=== PATIENT | female | born 1965 | race Caucasian/White ===

== ENCOUNTER 2018-01-28 09:20 | Emergency (ER) | payer MEDICAID ==
[~2018-01-28] VITALS: Ht 154.9 cm; Wt 108.7 kg
[~2018-01-28 09:20] MED LIST: APIX5TAB PO; ASPI-496 PO; GABA-826 PO; LEVO500T47 PO; METO50TA82 PO; TRAM50TA2 PO
[2018-01-28] MEDS ORDERED: ALBUTEROL/IPRATROPIUM 2.5MG/0.5MG, 3 ML ONE (10:26)
[2018-01-28] MEDS ORDERED: ALBUTEROL/IPRATROPIUM 2.5MG/0.5MG, 3 ML NPPB ONE (10:30)
[2018-01-28 10:49] LABS: BASOPHILS # (AUTO) 0.09 x10^3/uL (0-0.1); BASOPHILS % (AUTO) 1 % (0-1); EOSINOPHILS # (AUTO) 0.67 x10^3/uL (0-0.4); EOSINOPHILS % (AUTO) 5 % (1-7); LYMPHOCYTES # (AUTO) 2.28 x10^3/uL (1-3.4); LYMPHOCYTES % (AUTO) 18 % (22-44); MD NO; MEAN CORPUSCULAR HEMOGLOBIN 29.3 pg (27.0-34.8); MEAN CORPUSCULAR HGB CONC 33.8 g/dL (32.4-35.8); MEAN CORPUSCULAR VOLUME 86.7 fL (80-100); MEAN PLATELET VOLUME 7.9 fL (7.4-10.4); MONOCYTES # (AUTO) 0.62 x10^3/uL (0.2-0.8); MONOCYTES % (AUTO) 5 % (2-9); NEUTROPHILS % (AUTO) 71 % (42-75); PLATELET COUNT 314 x10^3/uL (130-400); RED BLOOD COUNT 4.59 x10^6/uL (3.82-5.3)
[2018-01-28 10:50] LABS: ALANINE AMINOTRANSFERASE 24 U/L (12-78); ALBUMIN 2.9 g/dL (3.4-5.0); ANION GAP 7 mmol/L (5-15); CALCIUM 8.3 mg/dL (8.5-10.1); CHLORIDE 107 mmol/L (98-107); CREATININE 0.82 mg/dL (0.55-1.02)
[2018-01-28 10:52] LABS: ALKALINE PHOSPHATASE 82 U/L (45-117); BILIRUBIN,TOTAL 0.6 mg/dL (0.2-1.0); TOTAL PROTEIN 7.6 g/dL (6.4-8.2)
[2018-01-28 11:41] VITALS: BP 140/72
[2018-01-28] MEDS ORDERED: SODIUM CHLORIDE FLUSH 10ML SYR IVF ONE (12:00)
[2018-01-28] MEDS ORDERED: OMNIPAQUE 350 MG/ML, 100ML BOTTLE ONE (12:40)
== END 2018-01-28 13:35 | disposition home or self-care (01) ==
LOC: ED 09:56
DX: J98.01 Acute bronchospasm (principal); E11.65 Type 2 diabetes mellitus with hyperglycemia
CPT/HCPCS: 36415; 71046; 71275; 80053; 85025; 85379; 93005; 94640; 99285; J7512; Q9967; J7620

== ENCOUNTER 2019-03-02 22:57 | Inpatient (IN) | payer MEDICAID, OTHER ==
[~2019-03-02] VITALS: Ht 154.9 cm; Wt 144.2 kg
--- NOTE | 2019-03-02 23:15 | NUR ---
SBAR report received from RN, Alexsander. Pt resting on gurney, on all monitors, NSR noted. Pt on 2 LPM O2 via NC.
--- NOTE | 2019-03-02 23:18 | NUR ---
Dr. Serna at bedside to evaluate pt. Lab at bedside.
[2019-03-02 23:29] LABS: BASOPHILS # (AUTO) 0.05 x10^3/uL (0-0.1); BASOPHILS % (AUTO) 1 % (0-1); EOSINOPHILS # (AUTO) 0.72 x10^3/uL (0-0.4); EOSINOPHILS % (AUTO) 6 % (1-7); LYMPHOCYTES # (AUTO) 2.43 x10^3/uL (1-3.4); LYMPHOCYTES % (AUTO) 20 % (22-44); MD NO; MEAN CORPUSCULAR HEMOGLOBIN 30.7 pg (27.0-34.8); MEAN CORPUSCULAR VOLUME 93.2 fL (80-100); MONOCYTES # (AUTO) 0.78 x10^3/uL (0.2-0.8); MONOCYTES % (AUTO) 7 % (2-9); NEUTROPHILS # (AUTO) 7.99 x10^3/uL (1.8-6.8); NEUTROPHILS % (AUTO) 67 % (42-75); PLATELET COUNT 247 x10^3/uL (130-400); RED BLOOD COUNT 4.47 x10^6/uL (3.82-5.3); RED CELL DISTRIBUTION WIDTH 14.4 % (9.6-15.2)
[2019-03-02 23:41] LABS: ALANINE AMINOTRANSFERASE 39 U/L (12-78); ALBUMIN 3.1 g/dL (3.4-5.0); ANION GAP 7 mmol/L (5-15); CALCIUM 8.2 mg/dL (8.5-10.1); CHLORIDE 102 mmol/L (98-107); CREATININE 0.85 mg/dL (0.55-1.02)
[2019-03-02 23:43] LABS: ALKALINE PHOSPHATASE 80 U/L (45-117); BILIRUBIN,TOTAL 0.5 mg/dL (0.2-1.0); TOTAL PROTEIN 7.4 g/dL (6.4-8.2); TROPONIN I < 0.015 ng/mL (0.000-0.045)
[2019-03-03] MEDS ORDERED: ACETAMINOPHEN 325 MG TABLET PO PRN (00:30)
[2019-03-03] MEDS ORDERED: NITROGLYCERIN 0.4 MG BOTTLE (25 TABS) SL PRN (00:30)
[2019-03-03] MEDS ORDERED: BISACODYL 10 MG SUPP PR PRN (00:30)
[2019-03-03] MEDS ORDERED: POLYETHYLENE GLYCOL 17 GM PACKET PO PRN (00:30)
[2019-03-03] MEDS ORDERED: ONDANSETRON ODT 4 MG PO PRN (00:30)
[2019-03-03] MEDS ORDERED: MORPHINE SULFATE 4 MG/ML, 1ML IVPush ONE (00:30)
[2019-03-03] MEDS ORDERED: HEPARIN 5,000 UNITS/ML, 1ML SQ SCH (00:30)
[2019-03-03] MEDS ORDERED: morphine SULFATE 10 MG/ML, 1ML IVPush PRN (00:30)
--- NOTE | 2019-03-03 00:33 | NUR ---
Tommy ESTRADA, at bedside to evaluate pt for admission.
--- NOTE | 2019-03-03 00:48 | NUR ---
Telephone SBAR report given to RNKaty. Pt made aware of new room assignment.
[2019-03-03 01:16] VITALS: BP 118/77
[2019-03-03 01:22] VITALS: BP 118/77
[2019-03-03 05:56] LABS: BASOPHILS # (AUTO) 0.07 x10^3/uL (0-0.1); BASOPHILS % (AUTO) 1 % (0-1); EOSINOPHILS # (AUTO) 0.86 x10^3/uL (0-0.4); EOSINOPHILS % (AUTO) 7 % (1-7); LYMPHOCYTES # (AUTO) 3.09 x10^3/uL (1-3.4); LYMPHOCYTES % (AUTO) 26 % (22-44); MD NO; MEAN CORPUSCULAR HEMOGLOBIN 30.4 pg (27.0-34.8); MEAN CORPUSCULAR VOLUME 92.1 fL (80-100); MEAN PLATELET VOLUME 9.1 fL (7.4-10.4); MONOCYTES # (AUTO) 0.74 x10^3/uL (0.2-0.8); MONOCYTES % (AUTO) 6 % (2-9); NEUTROPHILS # (AUTO) 7.13 x10^3/uL (1.8-6.8); NEUTROPHILS % (AUTO) 60 % (42-75); PLATELET COUNT 207 x10^3/uL (130-400); RED CELL DISTRIBUTION WIDTH 14.6 % (9.6-15.2)
[2019-03-03] MEDS ORDERED: ASPIRIN 81 MG TABLET EC PO SCH (06:00)
[2019-03-03 06:09] LABS: ALBUMIN 2.8 g/dL (3.4-5.0); ANION GAP 7 mmol/L (5-15); CHLORIDE 103 mmol/L (98-107)
[2019-03-03 06:15] LABS: ALANINE AMINOTRANSFERASE 36 U/L (12-78); ALKALINE PHOSPHATASE 82 U/L (45-117); BILIRUBIN,TOTAL 0.5 mg/dL (0.2-1.0); CREATININE 0.77 mg/dL (0.55-1.02); TOTAL PROTEIN 6.9 g/dL (6.4-8.2); TROPONIN I < 0.015 ng/mL (0.000-0.045)
[2019-03-03 07:34] VITALS: BP 126/80
[2019-03-03] MEDS ORDERED: metFORMIN 500 MG TABLET PO SCH (08:00)
[2019-03-03] MEDS ORDERED: REGADENOSON 0.4 MG/5 ML SYRINGE ONE (08:19)
[2019-03-03] MEDS ORDERED: SENNA/DOCUSATE TABLET PO SCH (09:00)
[2019-03-03] MEDS ORDERED: SODIUM CHLORIDE FLUSH 10ML SYR IVF SCH (09:00)
== END 2019-03-03 08:03 | disposition left against medical advice (07) | DRG 303 ==
LOC: ED 23:11 → EDIP 03-03 00:19 → 5SO 03-03 00:55
PROVIDERS: ADMIT Family Medicine; ATTEND Family Medicine
DX: I25.9 Chronic ischemic heart disease, unspecified (principal); E11.42 Type 2 diabetes mellitus with diabetic polyneuropathy; I11.9 Hypertensive heart disease without heart failure; M41.9 Scoliosis, unspecified; Z80.1 Family history of malignant neoplasm of trachea, bronchus and lung; Z86.711 Personal history of pulmonary embolism; Z86.718 Personal history of other venous thrombosis and embolism; Z53.21 Procedure and treatment not carried out due to patient leaving prior to being seen by health care provider; Z90.49 Acquired absence of other specified parts of digestive tract
CPT/HCPCS: 36415; 71045; 80053; 83036; 84484; 85025; 93005; G0378; J1644; J2785

== ENCOUNTER 2019-09-30 19:39 | Emergency (ER) | payer SELFPAY ==
[~2019-09-30] VITALS: Ht 154.9 cm; Wt 109.0 kg
[2019-09-30] MEDS ORDERED: SODIUM CHLORIDE FLUSH 10ML SYR IVF ONE (20:00)
[2019-09-30] MEDS ORDERED: methylPREDNISolone SOD SUCC 125 MG/2 ML IV ONE (20:00)
[2019-09-30] MEDS ORDERED: ALBUTEROL/IPRATROPIUM 2.5MG/0.5MG, 3 ML ONE (20:03)
[2019-09-30] MEDS: ALBUTEROL/IPRATROPIUM 2.5MG/0.5MG, 3 ML NPPB SCH (20:09)
[2019-09-30 20:10] LABS: BASOPHILS # (AUTO) 0.01 x10^3/uL (0-0.1); BASOPHILS % (AUTO) 0 % (0-1); EOSINOPHILS # (AUTO) 0.42 x10^3/uL (0-0.4); EOSINOPHILS % (AUTO) 4 % (1-7); LYMPHOCYTES # (AUTO) 2.92 x10^3/uL (1-3.4); LYMPHOCYTES % (AUTO) 29 % (22-44); MD NO; MEAN CORPUSCULAR HEMOGLOBIN 30.9 pg (27.0-34.8); MEAN CORPUSCULAR HGB CONC 32.9 g/dL (32.4-35.8); MEAN CORPUSCULAR VOLUME 93.8 fL (80-100); MEAN PLATELET VOLUME 8.1 fL (7.4-10.4); MONOCYTES # (AUTO) 0.55 x10^3/uL (0.2-0.8); MONOCYTES % (AUTO) 6 % (2-9); NEUTROPHILS % (AUTO) 61 % (42-75); PLATELET COUNT 283 x10^3/uL (130-400); RED CELL DISTRIBUTION WIDTH 14.3 % (9.6-15.2)
--- NOTE | 2019-09-30 20:14 | NUR ---
rt at bedside with breathing treatment
[2019-09-30 20:22] LABS: ANION GAP 9 mmol/L (5-15); CALCIUM 8.7 mg/dL (8.5-10.1); CHLORIDE 100 mmol/L (98-107)
[2019-09-30] MEDS ORDERED: methylPREDNISolone SOD SUCC 125 MG/2 ML ONE (20:28)
[2019-09-30 20:34] VITALS: BP 153/67
--- NOTE | 2019-09-30 20:37 | NUR ---
BIB [facility], WHEEZING AND COUGH X 7 DAYS. [facility] SAID ROOM AIR O2 WAS 85% however pt has been around 95% during ed care. pt with frequent, non productive cough.
[2019-09-30 20:40] LABS: ALANINE AMINOTRANSFERASE 27 U/L (12-78); ALKALINE PHOSPHATASE 106 U/L (45-117); BILIRUBIN,TOTAL 0.5 mg/dL (0.2-1.0); CREATININE 1.28 mg/dL (0.55-1.02); TOTAL PROTEIN 8.5 g/dL (6.4-8.2); TROPONIN I < 0.015 ng/mL (0.000-0.045)
== END 2019-09-30 21:29 | disposition home or self-care (01) ==
LOC: ED 20:26
DX: J98.01 Acute bronchospasm (principal); B34.9 Viral infection, unspecified; E11.9 Type 2 diabetes mellitus without complications; Z90.49 Acquired absence of other specified parts of digestive tract
CPT/HCPCS: 36415; 71045; 80053; 83880; 84484; 85025; 93005; 94640; 96374; 99284; J2930; J7620

== ENCOUNTER 2020-04-07 00:51 | Inpatient (IN) | payer MEDICAID, OTHER ==
[~2020-04-07] VITALS: Ht 162.6 cm; Wt 97.7 kg
[2020-04-07 01:58] LABS: BASOPHILS # (AUTO) 0.04 x10^3/uL (0-0.1); BASOPHILS % (AUTO) 0 % (0-1); EOSINOPHILS # (AUTO) 0.26 x10^3/uL (0-0.4); EOSINOPHILS % (AUTO) 3 % (1-7); LYMPHOCYTES # (AUTO) 2.05 x10^3/uL (1-3.4); LYMPHOCYTES % (AUTO) 20 % (22-44); MD NO; MEAN CORPUSCULAR HEMOGLOBIN 30.4 pg (27.0-34.8); MEAN CORPUSCULAR HGB CONC 33.1 g/dL (32.4-35.8); MEAN PLATELET VOLUME 8.7 fL (7.4-10.4); MONOCYTES # (AUTO) 0.63 x10^3/uL (0.2-0.8); MONOCYTES % (AUTO) 6 % (2-9); NEUTROPHILS # (AUTO) 7.36 x10^3/uL (1.8-6.8); NEUTROPHILS % (AUTO) 71 % (42-75); PLATELET COUNT 280 x10^3/uL (130-400); RED BLOOD COUNT 4.87 x10^6/uL (3.82-5.3); RED CELL DISTRIBUTION WIDTH 13.9 % (9.6-15.2)
[2020-04-07] MEDS ORDERED: ONDANSETRON 2MG/ML, 2ML IVPush ONE (02:00)
[2020-04-07] MEDS ORDERED: MORPHINE SULFATE 4 MG/ML, 1ML IVPush ONE (02:00)
[2020-04-07 02:07] LABS: ALANINE AMINOTRANSFERASE 35 U/L (12-78); ANION GAP 10 mmol/L (5-15); CALCIUM 8.7 mg/dL (8.5-10.1); CHLORIDE 102 mmol/L (98-107); CREATININE 1.11 mg/dL (0.55-1.02)
[2020-04-07 02:09] LABS: ALKALINE PHOSPHATASE 98 U/L (45-117); BILIRUBIN,TOTAL 1.1 mg/dL (0.2-1.0); TOTAL PROTEIN 8.3 g/dL (6.4-8.2)
--- NOTE | 2020-04-07 02:13 | NUR ---
Pt declined morphine and zofran at this time.
[2020-04-07 02:15] LABS: MICROSCOPIC INDICATED
[2020-04-07] MEDS ORDERED: ONDANSETRON 2MG/ML, 2ML ONE (02:22)
[2020-04-07] MEDS ORDERED: MORPHINE SULFATE 4 MG/ML, 1ML ONE (02:22)
[2020-04-07] MEDS ORDERED: CEFTRIAXONE PMX 1GM/50ML 50 ML IV ONE (03:30)
[2020-04-07] MEDS ORDERED: SODIUM CHLORIDE 0.9% 1,000ML IVBOLUS ONE (03:30)
[2020-04-07] MEDS ORDERED: AZITHROMYCIN 500 MG in SODIUM CHLORIDE 0.9% 250 ML IV ONE (03:30)
[2020-04-07 03:42] LABS: TROPONIN I < 0.015 ng/mL (0.000-0.045)
[2020-04-07] MEDS ORDERED: OMNIPAQUE 350 MG/ML, 75ML BOTTLE ONE (03:43)
[2020-04-07] MEDS ORDERED: CEFTRIAXONE PMX 1GM/50ML 50 ML ONE (03:52)
--- NOTE | 2020-04-07 05:40 | NUR ---
Per pt's request, contact her sister Tere Taylor at [phone] and give her an update. Call went to [employer], message to return call at [phone], not an emergency.
[2020-04-07] MEDS ORDERED: ACETAMINOPHEN 325 MG TABLET PO PRN (06:00)
[2020-04-07] MEDS ORDERED: ONDANSETRON 2MG/ML, 2ML IVPush PRN (06:00)
[2020-04-07] MEDS ORDERED: POLYETHYLENE GLYCOL 17 GM PACKET PO PRN (06:00)
[2020-04-07] MEDS ORDERED: BISACODYL 10 MG SUPP PR PRN (06:00)
[2020-04-07] MEDS ORDERED: hydrALAzine 20 MG/ML, 1ML IVPush PRN (06:00)
[2020-04-07] MEDS ORDERED: OXYcodone IR 5MG TABLET PO PRN (06:00)
[2020-04-07] MEDS ORDERED: LORazepam 2 MG/ML, 1ML IVPush PRN (06:00)
[2020-04-07] MEDS ORDERED: DOCUSATE 100 MG CAPSULE PO PRN (06:00)
--- NOTE | 2020-04-07 06:28 | NUR ---
Pt up to bathroom w/o assistance, no gait disturbance noted.
[2020-04-07 07:03] VITALS: BP 110/73
[2020-04-07] MEDS ORDERED: metroNIDAZOLE 500 MG TABLET PO ONE (08:00)
[2020-04-07] MEDS: CEFTRIAXONE PMX 2GM/50ML 50 ML IV SCH (08:20)
[2020-04-07] MEDS: FAMOTIDINE 20 MG TABLET PO SCH ×2 (08:21→21:12)
[2020-04-07] MEDS: APIXABAN 5 MG TABLET PO SCH ×2 (08:21→21:13)
[2020-04-07 12:13] VITALS: BP 126/75
[2020-04-07 20:12] VITALS: BP 113/73
[2020-04-07] MEDS ORDERED: MELATONIN 5 MG TABLET PO PRN (21:00)
[2020-04-07] MEDS ORDERED: TEMAZEPAM 15 MG CAPSULE PO PRN (21:00)
[2020-04-08 01:33] VITALS: BP 102/65
[2020-04-08 05:04] LABS: BASOPHILS # (AUTO) 0.03 x10^3/uL (0-0.1); BASOPHILS % (AUTO) 0 % (0-1); EOSINOPHILS # (AUTO) 0.55 x10^3/uL (0-0.4); EOSINOPHILS % (AUTO) 6 % (1-7); LYMPHOCYTES # (AUTO) 2.33 x10^3/uL (1-3.4); LYMPHOCYTES % (AUTO) 24 % (22-44); MD NO; MEAN CORPUSCULAR HEMOGLOBIN 30.2 pg (27.0-34.8); MEAN PLATELET VOLUME 8.7 fL (7.4-10.4); MONOCYTES # (AUTO) 0.53 x10^3/uL (0.2-0.8); MONOCYTES % (AUTO) 6 % (2-9); NEUTROPHILS # (AUTO) 6.16 x10^3/uL (1.8-6.8); NEUTROPHILS % (AUTO) 64 % (42-75); PLATELET COUNT 249 x10^3/uL (130-400); RED BLOOD COUNT 4.29 x10^6/uL (3.82-5.3); RED CELL DISTRIBUTION WIDTH 14.5 % (9.6-15.2)
[2020-04-08 05:14] LABS: ANION GAP 7 mmol/L (5-15); CALCIUM 8.2 mg/dL (8.5-10.1); CHLORIDE 106 mmol/L (98-107); CREATININE 0.89 mg/dL (0.55-1.02)
[2020-04-08] MEDS: FAMOTIDINE 20 MG TABLET PO SCH ×2 (08:31→20:56)
[2020-04-08] MEDS: CEFTRIAXONE PMX 2GM/50ML 50 ML IV SCH (08:31)
[2020-04-08] MEDS: APIXABAN 5 MG TABLET PO SCH ×2 (08:32→20:56)
[2020-04-08 09:04] VITALS: BP 117/74
[2020-04-08 15:20] VITALS: BP 125/76
[2020-04-08 20:08] VITALS: BP_SYST 113; BP_SYST 131; BP_DIAS 59; BP_DIAS 83
[2020-04-09 00:26] VITALS: BP 130/78
[2020-04-09 08:12] VITALS: BP 111/72
[2020-04-09] MEDS: FAMOTIDINE 20 MG TABLET PO SCH ×2 (08:25→20:24)
[2020-04-09] MEDS: CEFTRIAXONE PMX 2GM/50ML 50 ML IV SCH (08:25)
[2020-04-09] MEDS: APIXABAN 5 MG TABLET PO SCH ×2 (08:25→20:24)
[2020-04-09 11:13] VITALS: BP 137/80
[2020-04-09 12:22] VITALS: BP 133/78
[2020-04-09 13:15] VITALS: BP 131/75
[2020-04-09] MEDS ORDERED: LIDOCAINE 1%, 10ML INFIL ONE (14:30)
[2020-04-09 18:34] VITALS: BP 159/76
[2020-04-10 01:17] VITALS: BP 135/77
[2020-04-10 07:29] VITALS: BP 154/91
[2020-04-10] MEDS ORDERED: APIX5TAB PO ×2 (07:50)
[2020-04-10] MEDS: APIXABAN 5 MG TABLET PO SCH (10:24)
[2020-04-10] MEDS: FAMOTIDINE 20 MG TABLET PO SCH (10:24)
[2020-04-10 10:36] VITALS: BP 154/81
== END 2020-04-10 10:50 | disposition home or self-care (01) | DRG 299 ==
LOC: ED 01:11 → EDIP 06:13 → 4NE 06:59 → 3N 04-08 16:21 → DCLOUNGE 04-10 10:40
PROVIDERS: ADMIT Internal Medicine; ATTEND Hospitalist
DX: I82.442 Acute embolism and thrombosis of left tibial vein (principal); J18.9 Pneumonia, unspecified organism; J96.01 Acute respiratory failure with hypoxia; J98.11 Atelectasis; N39.0 Urinary tract infection, site not specified; I82.402 Acute embolism and thrombosis of unspecified deep veins of left lower extremity; K59.00 Constipation, unspecified; E66.9 Obesity, unspecified; H91.90 Unspecified hearing loss, unspecified ear; Z20.828 Contact with and (suspected) exposure to other viral communicable diseases; R19.7 Diarrhea, unspecified; I82.452 Acute embolism and thrombosis of left peroneal vein; I10 Essential (primary) hypertension; I71.4 Abdominal aortic aneurysm, without rupture; M41.9 Scoliosis, unspecified; Z59.0 Homelessness; Z79.4 Long term (current) use of insulin; Z83.3 Family history of diabetes mellitus; Z86.711 Personal history of pulmonary embolism; Z90.49 Acquired absence of other specified parts of digestive tract; Z68.37 Body mass index [BMI] 37.0-37.9, adult
CPT/HCPCS: 36415; 71046; 71275; 80048; 80053; 81001; 82728; 83615; 83690; 83735; 84100; 84484; 85025; 85379; 87077; 87086; 87186; 87635; 93005; 96374; G0378; J0456; J0696; J2405; Q9967; J2270; J7030; J7050

== ENCOUNTER 2020-04-16 22:29 | Emergency (ER) | payer MEDICAID ==
[~2020-04-16] VITALS: Ht 154.9 cm; Wt 99.6 kg
--- NOTE | 2020-04-16 23:14 | NUR ---
Pt presents to ed c/o L leg swelling and recent dx of dvt in L leg. States not on blood thinner that was prescribed. "my boyfriend and i are homeless; I cant afford it." States takes an aspirin daily. L leg grossly swollen, red, and hot to the touch. Denies cp or sob. Monitoring applied. VSS. Call light within reach. Awaiting Futher oders.
[2020-04-16 23:15] VITALS: BP 129/55
[2020-04-17] MEDS ORDERED: Enoxaparin 1 mg/kg protocol SQ ONE
[2020-04-17] MEDS ORDERED: ENOXAPARIN 100 MG/ML SQ ONE
[2020-04-17] MEDS ORDERED: ENOXAPARIN 100 MG/ML ONE (00:05)
== END 2020-04-17 01:05 | disposition home or self-care (01) ==
LOC: ED 23:46
DX: I82.532 Chronic embolism and thrombosis of left popliteal vein (principal); Z72.9 Problem related to lifestyle, unspecified; I10 Essential (primary) hypertension; E11.65 Type 2 diabetes mellitus with hyperglycemia; Z90.89 Acquired absence of other organs; Z90.49 Acquired absence of other specified parts of digestive tract
CPT/HCPCS: 93971; 96372; 99284; J1650

== ENCOUNTER 2020-11-29 04:16 | Observation (INO) | payer MEDICAID ==
[~2020-11-29] VITALS: Ht 154.9 cm; Wt 91.0 kg
--- NOTE | 2020-11-29 04:16 | NUR ---
INITIAL PT CONTACT. PT BIBA C/O SOB, COUGH, OCCASIONAL FEVER AND SORE THROAT X1 WEEKS, WORSE TODAY. PT DENIES RECENT CONTACT WITH ANYONE COVID +. PER EMS PT O2 SAT WAS 90% ON ROOM AIR UPON THEIR ARRIVAL, PT PLACED ON 2L O2 VIA NASAL CANNULA AND O2 SAT INCREASE TO 95%. PT ALSO GIVEN PT GIVEN ALBUTEROL AND DUO NEB EN ROUTE. PT MOVED FROM EMS [facility] TO ED [facility]. CONTINUOUS PULSE OX AND CARDIAC MONITORING IN PLACE. ROOM AIR SAT UPON ARRIVAL IN ED 95%. PT PROVIDED WARM BLANKET. CALL LIGHT AND PERSONAL BELONGINGS WITHIN REACH. AWAITING ERP.
[2020-11-29] MEDS ORDERED: ALBUTEROL/IPRATROPIUM 2.5MG/0.5MG, 3 ML ONE (04:55)
[2020-11-29] MEDS ORDERED: ALBUTEROL/IPRATROPIUM 2.5MG/0.5MG, 3 ML NPPB ONE (05:00)
[2020-11-29 05:41] LABS: BASOPHILS % (AUTO) 1 % (0-1); EOSINOPHILS % (AUTO) 4 % (1-7); LYMPHOCYTES % (AUTO) 19 % (22-44); MEAN CORPUSCULAR HEMOGLOBIN 29.4 pg (27.0-34.8); MEAN CORPUSCULAR HGB CONC 33.4 g/dL (32.4-35.8); MONOCYTES % (AUTO) 7 % (2-9); NEUTROPHILS % (AUTO) 70 % (42-75); PLATELET COUNT 244 x10^3/uL (130-400); RED BLOOD COUNT 4.99 x10^6/uL (3.82-5.3); RED CELL DISTRIBUTION WIDTH 14.7 % (9.6-15.2)
[2020-11-29 05:42] LABS: MD NO
[2020-11-29 05:54] LABS: ALANINE AMINOTRANSFERASE 21 U/L (12-78); ALBUMIN 2.9 g/dL (3.4-5.0); ANION GAP 7 mmol/L (5-15); CALCIUM 8.6 mg/dL (8.5-10.1); CHLORIDE 101 mmol/L (98-107); CREATININE 0.86 mg/dL (0.55-1.02)
[2020-11-29 05:56] LABS: ALKALINE PHOSPHATASE 128 U/L (45-117); BILIRUBIN,TOTAL 0.5 mg/dL (0.2-1.0); TOTAL PROTEIN 8.5 g/dL (6.4-8.2)
--- NOTE | 2020-11-29 06:02 | NUR ---
PT SITING UPRIGHT ON GURNEY, REQUESTING SUPPLEMENTAL O2, 2L PLACED VIA NASAL CANNULA. PT DENIES ANY CHANGE OR RELIEF FOLLOWING BREATHING TX. PT DENIES ANY ADDIIONAL NEEDS AT THIS TIME. CALL LIGHT AND PERSONAL BELONGINGS WITHIN REACH.
[2020-11-29 06:35] LABS: TROPONIN I < 0.015 ng/mL (0.000-0.045)
--- NOTE | 2020-11-29 06:54 | NUR ---
REPORT TO TIANNA HILL
--- NOTE | 2020-11-29 07:14 | NUR ---
PT OFF THE FLOOR TO CT
[2020-11-29] MEDS ORDERED: OMNIPAQUE 350 MG/ML, 75ML BOTTLE ONE (07:21)
--- NOTE | 2020-11-29 08:45 | NUR ---
PHONE REPORT TO LIZ RIVERA
[2020-11-29] MEDS ORDERED: ONDANSETRON 2MG/ML, 2ML IVPush PRN (09:30)
[2020-11-29] MEDS ORDERED: ENALAPRILAT 1.25 MG/ML, 2ML IVPush PRN (09:30)
[2020-11-29] MEDS ORDERED: morphine SULFATE 10 MG/ML, 1ML IVPush PRN (09:30)
[2020-11-29] MEDS ORDERED: DIPHENHYDRAMINE 25 MG CAPSULE PO PRN (09:30)
[2020-11-29] MEDS ORDERED: ONDANSETRON ODT 4 MG PO PRN (09:30)
[2020-11-29] MEDS ORDERED: GUAIFENESIN/DM 200-20MG, 10ML UDC PO PRN (09:30)
[2020-11-29] MEDS ORDERED: ACETAMINOPHEN 325 MG TABLET PO PRN (09:30)
[2020-11-29 09:51] VITALS: BP 149/84
[2020-11-29] MEDS ORDERED: ALBUTEROL HFA 90 MCG/SPRAY INH PRN (11:30)
[2020-11-29] MEDS ORDERED: LISINOPRIL 10 MG TABLET PO SCH (11:30)
[2020-11-29 13:17] VITALS: BP 123/76
[2020-11-29] MEDS ORDERED: INSULIN LISPRO 100 UNITS/ML, PEN SQ-INSULIN SCH (16:00)
[2020-11-29] MEDS ORDERED: OMEPRAZOLE 20 MG CAPSULE.DR PO SCH (16:00)
[2020-11-29] MEDS ORDERED: metFORMIN 500 MG TABLET PO SCH (17:00)
== END 2020-11-29 17:10 | disposition left against medical advice (07) ==
LOC: ED 05:50 → INTOOBSV 08:15 → 4EST 08:15
PROVIDERS: ADMIT Hospitalist; ATTEND Hospitalist
DX: J20.9 Acute bronchitis, unspecified (principal); I10 Essential (primary) hypertension; E11.65 Type 2 diabetes mellitus with hyperglycemia; E66.9 Obesity, unspecified; E87.1 Hypo-osmolality and hyponatremia; D72.829 Elevated white blood cell count, unspecified; Z79.899 Other long term (current) drug therapy; Z86.711 Personal history of pulmonary embolism; Z86.718 Personal history of other venous thrombosis and embolism; Z77.22 Contact with and (suspected) exposure to environmental tobacco smoke (acute) (chronic)
CPT/HCPCS: 36415; 71045; 71275; 80053; 83036; 83880; 84484; 85025; 85379; 87081; 87147; 87880; 93005; 99285; G0378; J7512; Q9967

== ENCOUNTER 2020-12-09 14:50 | Inpatient (IN) | payer MEDICAID ==
[~2020-12-09] VITALS: Ht 154.9 cm; Wt 93.4 kg
--- NOTE | 2020-12-09 14:58 | NUR ---
pt BIB [facility] c/o cough, SOB and CP x1 week. pt reports that she feels like her "lungs are on fire". 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 pt had 250cc NS infused GRAIN II FARMWORKER. +non-productive cough. no family at bedside report to Hortencia HILL
--- NOTE | 2020-12-09 15:04 | NUR ---
ASSUMED CARE OF PATIENT. PATIENT BIB [facility] FOR SOB AND A COUGH. PT REPORTS SHE WAS RECENTLY ADMITTED FOR PNEUMONIA BUT LEFT AMA. VS STABLE. BODY AND FENDER WORKER ON. NSR NOTED. CALL LIGHT IN PLACE. PT WATCHING TV IN ROOM. BLANKET GIVEN. WILL CONTINUE TO MONITOR.
--- NOTE | 2020-12-09 15:59 | NUR ---
XRAY IN ROOM/LABS HAVE BEEN DRAWN
[2020-12-09] MEDS ORDERED: SODIUM CHLORIDE FLUSH 10ML SYR IVF ONE (16:00)
[2020-12-09 16:37] LABS: BASOPHILS % (AUTO) 1 % (0-1); EOSINOPHILS % (AUTO) 3 % (1-7); LYMPHOCYTES % (AUTO) 15 % (22-44); MEAN CORPUSCULAR HEMOGLOBIN 29.4 pg (27.0-34.8); MEAN CORPUSCULAR HGB CONC 33.5 g/dL (32.4-35.8); MEAN PLATELET VOLUME 8.3 fL (7.4-10.4); MONOCYTES % (AUTO) 5 % (2-9); NEUTROPHILS % (AUTO) 76 % (42-75); PLATELET COUNT 284 x10^3/uL (130-400); RED BLOOD COUNT 4.95 x10^6/uL (3.82-5.3); RED CELL DISTRIBUTION WIDTH 14.9 % (9.6-15.2)
[2020-12-09 16:39] LABS: ALANINE AMINOTRANSFERASE 20 U/L (12-78); ALBUMIN 2.7 g/dL (3.4-5.0); ANION GAP 6 mmol/L (5-15); CALCIUM 8.7 mg/dL (8.5-10.1); CHLORIDE 103 mmol/L (98-107); CREATININE 0.77 mg/dL (0.55-1.02); MD NO
[2020-12-09 16:43] LABS: ALKALINE PHOSPHATASE 106 U/L (45-117); BILIRUBIN,TOTAL 0.6 mg/dL (0.2-1.0); TOTAL PROTEIN 8.1 g/dL (6.4-8.2); TROPONIN I < 0.015 ng/mL (0.000-0.045)
--- NOTE | 2020-12-09 16:45 | NUR ---
SPOKE TO DR HANSON ABOUT SEPSIS PROTOCOL. SECOND BLOOD CULTURE ORDERED.
--- NOTE | 2020-12-09 16:54 | NUR ---
PER DR HANSON SHE NO LONGER WANTS SECOND BLOOD CULTURE. LAB INFORMED.
--- NOTE | 2020-12-09 18:07 | NUR ---
pt to be an admit. Vs stable. security project manager on. sinus tach noted. Pt watching tv in room. no acute distress noted. call light in place. will continue to monitor.
--- NOTE | 2020-12-09 18:41 | NUR ---
pt used the bedside commode. pt reports some loose stool. Vipul, primary RN on [facility] aware. Vs stable. no acute distress noted. will continue to monitor.
[2020-12-09 20:13] VITALS: BP 151/76
[2020-12-09] MEDS ORDERED: LIDODERM 5% PATCH TD PRN (22:30)
[2020-12-09] MEDS ORDERED: NITROGLYCERIN 0.4 MG BOTTLE (25 TABS) SL PRN (22:30)
[2020-12-09] MEDS ORDERED: MELATONIN 5 MG TABLET PO PRN (22:30)
[2020-12-09] MEDS ORDERED: DOCUSATE 100 MG CAPSULE PO PRN (22:30)
[2020-12-09] MEDS ORDERED: hydrALAzine 20 MG/ML, 1ML IVPush PRN (22:30)
[2020-12-09] MEDS: BENZONATATE 100 MG CAPSULE PO SCH (22:51)
[2020-12-09] MEDS: ENOXAPARIN 40 MG/0.4 ML SQ SCH (22:51)
[2020-12-09 23:35] LABS: TROPONIN I < 0.015 ng/mL (0.000-0.045)
[2020-12-09] MEDS: INSULIN LISPRO 100 UNITS/ML, PEN SQ-INSULIN SCH (23:38)
[2020-12-10 02:43] VITALS: BP 117/68
[2020-12-10 05:43] LABS: BASOPHILS % (AUTO) 1 % (0-1); EOSINOPHILS % (AUTO) 4 % (1-7); LYMPHOCYTES % (AUTO) 22 % (22-44); MD NO; MEAN CORPUSCULAR HEMOGLOBIN 29.2 pg (27.0-34.8); MEAN CORPUSCULAR HGB CONC 32.9 g/dL (32.4-35.8); MEAN PLATELET VOLUME 8.3 fL (7.4-10.4); MONOCYTES % (AUTO) 7 % (2-9); NEUTROPHILS % (AUTO) 66 % (42-75); PLATELET COUNT 304 x10^3/uL (130-400); RED BLOOD COUNT 4.73 x10^6/uL (3.82-5.3); RED CELL DISTRIBUTION WIDTH 15.1 % (9.6-15.2)
[2020-12-10 05:56] LABS: ANION GAP 6 mmol/L (5-15); CALCIUM 8.3 mg/dL (8.5-10.1); CHLORIDE 104 mmol/L (98-107); CREATININE 0.68 mg/dL (0.55-1.02)
[2020-12-10 06:07] LABS: TROPONIN I < 0.015 ng/mL (0.000-0.045)
[2020-12-10 07:33] VITALS: BP 104/68
[2020-12-10] MEDS: BENZONATATE 100 MG CAPSULE PO SCH ×3 (09:33→21:40)
[2020-12-10] MEDS: FUROSEMIDE 20 MG/2 ML IV SCH ×2 (09:33→17:52)
[2020-12-10] MEDS: INSULIN LISPRO 100 UNITS/ML, PEN SQ-INSULIN SCH ×4 (09:34→21:48)
[2020-12-10] MEDS: ACETAMINOPHEN 325 MG TABLET PO PRN ×2 (09:57→21:40)
[2020-12-10 10:04] LABS: FREE T4 (FREE THYROXINE) 1.18 ng/dL (0.76-1.46)
[2020-12-10 13:26] VITALS: BP 123/76
[2020-12-10] MEDS: NYSTATIN TOPICAL POWDER 15GM TP SCH ×2 (17:52→21:44)
[2020-12-10 20:26] VITALS: BP 119/75
[2020-12-10] MEDS: ENOXAPARIN 40 MG/0.4 ML SQ SCH (21:45)
[2020-12-11 01:35] VITALS: BP 120/70
[2020-12-11 05:58] LABS: BASOPHILS % (AUTO) 1 % (0-1); EOSINOPHILS % (AUTO) 5 % (1-7); LYMPHOCYTES % (AUTO) 31 % (22-44); MEAN CORPUSCULAR HEMOGLOBIN 28.8 pg (27.0-34.8); MEAN CORPUSCULAR HGB CONC 32.5 g/dL (32.4-35.8); MEAN PLATELET VOLUME 8.1 fL (7.4-10.4); MONOCYTES % (AUTO) 7 % (2-9); NEUTROPHILS % (AUTO) 56 % (42-75); PLATELET COUNT 274 x10^3/uL (130-400); RED CELL DISTRIBUTION WIDTH 15.4 % (9.6-15.2)
[2020-12-11] MEDS ORDERED: THYROID 30 MG TABLET PO SCH (06:00)
[2020-12-11 06:01] LABS: MD NO
[2020-12-11 06:02] LABS: ALBUMIN 2.7 g/dL (3.4-5.0); ANION GAP 5 mmol/L (5-15); CALCIUM 8.5 mg/dL (8.5-10.1); CHLORIDE 102 mmol/L (98-107); CREATININE 0.77 mg/dL (0.55-1.02)
[2020-12-11 06:59] VITALS: BP 110/74
[2020-12-11] MEDS: BENZONATATE 100 MG CAPSULE PO SCH ×2 (08:51→16:14)
[2020-12-11] MEDS: FUROSEMIDE 20 MG/2 ML IV SCH (08:51)
[2020-12-11] MEDS: INSULIN LISPRO 100 UNITS/ML, PEN SQ-INSULIN SCH ×2 (08:51→12:31)
[2020-12-11] MEDS: NYSTATIN TOPICAL POWDER 15GM TP SCH (08:52)
[2020-12-11] MEDS ORDERED: FLUTICASONE/VILANTEROL 100-25MCG/INH INH SCH (09:00)
[2020-12-11 13:15] VITALS: BP 118/72
[2020-12-11] MEDS: ACETAMINOPHEN 325 MG TABLET PO PRN (13:51)
[2020-12-11] MEDS ORDERED: NYST15PO2 TP (15:31)
[2020-12-11] MEDS ORDERED: BENZ-17 PO (15:31)
[2020-12-11] MEDS ORDERED: FLUT1AER INH (15:31)
[2020-12-11] MEDS ORDERED: THYR30TA PO (15:31)
[2020-12-11] MEDS ORDERED: METO25TA91 PO (15:38)
[2020-12-11] MEDS ORDERED: METF500T PO (15:38)
== END 2020-12-11 17:29 | disposition home or self-care (01) | DRG 204 ==
LOC: ED 17:48 → EDIP 17:55 → ED 18:47 → 4WST 19:14
PROVIDERS: ADMIT Hospitalist; ATTEND Family Medicine
DX: R07.81 Pleurodynia (principal); E03.9 Hypothyroidism, unspecified; E11.9 Type 2 diabetes mellitus without complications; Z77.22 Contact with and (suspected) exposure to environmental tobacco smoke (acute) (chronic); E66.01 Morbid (severe) obesity due to excess calories; I11.0 Hypertensive heart disease with heart failure; I50.9 Heart failure, unspecified; J42 Unspecified chronic bronchitis; Z20.822 Contact with and (suspected) exposure to COVID-19; Z86.718 Personal history of other venous thrombosis and embolism; Z87.01 Personal history of pneumonia (recurrent); Z91.19 Patient's noncompliance with other medical treatment and regimen; Z86.711 Personal history of pulmonary embolism; Z90.49 Acquired absence of other specified parts of digestive tract; Z83.3 Family history of diabetes mellitus; Z68.38 Body mass index [BMI] 38.0-38.9, adult
CPT/HCPCS: 36415; 99285; C8929; 71045; 80048; 80053; 80069; 82962; 83605; 83735; 83880; 84439; 84443; 84481; 84484; 85025; 87040; 93005; 94640; G0378; J1650; Q9957; J1815; J1940; U0003

== ENCOUNTER 2020-12-23 18:52 | Emergency (ER) | payer MEDICAID ==
[~2020-12-23] VITALS: Ht 154.9 cm; Wt 90.9 kg
[~2020-12-23 18:52] MED LIST changes: +BENZ-17 PO; +FLUT1AER INH; +METF500T PO; +METO25TA91 PO; +NYST15PO2 TP; +THYR30TA PO
--- NOTE | 2020-12-23 19:22 | NUR ---
BIB EMS, PER REPORT PT FOUND [place]. PT STATES SHE HAS BEEN FALLING MULTIPLE TIMES OF THE PAST COUPLE WEEKS, STATES HER LEGS JUST GIVE OUT. PT ALSO COMPLAINS OF CHILLS, FEVER, AND SOB. PT STARTES HISTORY OF DM AND HAD A BS OF 332 PRIOR TO COMING IN. PT FEBRILE ON ARRIVAL, ON ALL MONITORS, RESP EVEN/UNLABORED, AWAITING ERP EVAL
--- NOTE | 2020-12-23 20:00 | NUR ---
ekg completed, signed off by dr. baptiste
--- NOTE | 2020-12-23 20:37 | NUR ---
PT RESTING IN [facility], NO NEEDS AT THIS TIME. CXR COMPLETED
[2020-12-23 20:55] LABS: BASOPHILS % (AUTO) 0 % (0-1); EOSINOPHILS % (AUTO) 0 % (1-7); LYMPHOCYTES % (AUTO) 11 % (22-44); MEAN CORPUSCULAR HEMOGLOBIN 29.6 pg (27.0-34.8); MEAN PLATELET VOLUME 9.3 fL (7.4-10.4); MONOCYTES % (AUTO) 9 % (2-9); NEUTROPHILS % (AUTO) 79 % (42-75); PLATELET COUNT 135 x10^3/uL (130-400); RED BLOOD COUNT 4.59 x10^6/uL (3.82-5.3); RED CELL DISTRIBUTION WIDTH 15.7 % (9.6-15.2)
[2020-12-23 21:06] LABS: ALANINE AMINOTRANSFERASE 25 U/L (12-78); ALBUMIN 2.5 g/dL (3.4-5.0); ANION GAP 8 mmol/L (5-15); CALCIUM 8.1 mg/dL (8.5-10.1); CHLORIDE 96 mmol/L (98-107); CREATININE 1.11 mg/dL (0.55-1.02)
[2020-12-23 21:11] LABS: ALKALINE PHOSPHATASE 87 U/L (45-117); BILIRUBIN,TOTAL 1.6 mg/dL (0.2-1.0); TOTAL PROTEIN 7.7 g/dL (6.4-8.2); TROPONIN I < 0.015 ng/mL (0.000-0.045)
[2020-12-23] MEDS ORDERED: SODIUM CHLORIDE 0.9% 1,000ML IVBOLUS ONE (21:30)
[2020-12-23] MEDS ORDERED: SODIUM CHLORIDE FLUSH 10ML SYR IVF ONE (21:30)
[2020-12-23] MEDS ORDERED: IBUPROFEN 200 MG TABLET ONE (21:37)
--- NOTE | 2020-12-23 21:55 | NUR ---
pt resting in [facility], medicated per emar, fluids running, no other needs at this time
[2020-12-23] MEDS ORDERED: IBUPROFEN 200 MG TABLET PO ONE (22:00)
--- NOTE | 2020-12-23 22:01 | NUR ---
pt ambulated to restroom. pt able to ambulate without assistance, pt states feeling weak
--- NOTE | 2020-12-23 22:47 | NUR ---
pt states unable to urinate at this time, given water, ns finished, will try again
--- NOTE | 2020-12-23 23:03 | NUR ---
pt ambulated to restroom without assistance
--- NOTE | 2020-12-23 23:15 | NUR ---
pt states she is still unable to urinate, pt urinated earlier tonight. per md give rocephin iv anticipating uti. pt agreeable
--- NOTE | 2020-12-23 23:16 | NUR ---
ua not needed per erp
[2020-12-23] MEDS ORDERED: CEFTRIAXONE PMX 1GM/50ML 50 ML ONE (23:18)
--- NOTE | 2020-12-23 23:25 | NUR ---
PT COMPLAINS OF CHEST PAIN, EKG TAKEN, SIGNED OFF BY ERP.
--- NOTE | 2020-12-23 23:27 | NUR ---
no blood cultures prior to abx per erp
[2020-12-24] MEDS ORDERED: CEFTRIAXONE PMX 1GM/50ML 50 ML IVPB ONE
[2020-12-24 00:17] VITALS: BP 106/58
== END 2020-12-24 01:06 | disposition home or self-care (01) ==
LOC: ED 21:59
DX: N30.00 Acute cystitis without hematuria (principal); R50.9 Fever, unspecified; I11.0 Hypertensive heart disease with heart failure; I50.9 Heart failure, unspecified; E11.65 Type 2 diabetes mellitus with hyperglycemia; Z90.49 Acquired absence of other specified parts of digestive tract; Z86.718 Personal history of other venous thrombosis and embolism
CPT/HCPCS: 36415; 71045; 80053; 84484; 85025; 93005; 96361; 96365; 99285; J0696; J7030

== ENCOUNTER 2020-12-31 07:03 | Emergency (ER) | payer MEDICAID ==
[~2020-12-31] VITALS: Ht 154.9 cm; Wt 98.6 kg
--- NOTE | 2020-12-31 07:06 | NUR ---
DIRECTOR OF PUBLIC WORKS: [id number]
--- NOTE | 2020-12-31 07:31 | NUR ---
RT MIDDLE FINGER SWELLING FOR A FEW DAYS. NOW RADIATING TO OTHER FINGERS. THOMAS TO BEDSIDE FOR EVALUATION. PT ATTACHED TO MONITORS. VSS. DEL REAL.
[2020-12-31] MEDS ORDERED: LIDOCAINE-MPF 1%, 5ML ONE (07:42)
[2020-12-31] MEDS ORDERED: LIDOCAINE-MPF 1%, 5ML INFIL ONE (08:00)
--- NOTE | 2020-12-31 08:05 | NUR ---
THOMAS ACKERMAN PREFORMED I&D. VSS.
--- NOTE | 2020-12-31 08:12 | NUR ---
BREAK RN: PT LAYING ON GURNEY CALMLY, STATES PAIN HAS DECREASED. NADN/VSS. CALL LIGHT WITHIN REACH. NO NEEDS AT THIS TIME
[2020-12-31] MEDS ORDERED: CEPHALEXIN 500 MG CAPSULE PO ONE (08:30)
[2020-12-31] MEDS ORDERED: SULFAMETH./TRIMETHOPRIM DS 800MG/160MG TABLET PO ONE (08:30)
[2020-12-31] MEDS ORDERED: SULFAMETH./TRIMETHOPRIM DS 800MG/160MG TABLET ONE (09:02)
[2020-12-31] MEDS ORDERED: CEPHALEXIN 500 MG CAPSULE ONE (09:02)
[2020-12-31 09:12] VITALS: BP 159/83
--- NOTE | 2020-12-31 09:28 | NUR ---
Patient given discharge instructions and they have confirmed that they understand the instructions. Patient ambulatory with steady gait. PT GIVEN CLOTHES.
== END 2020-12-31 09:28 | disposition home or self-care (01) ==
LOC: ED 08:46
DX: L03.011 Cellulitis of right finger (principal); E11.9 Type 2 diabetes mellitus without complications; I50.9 Heart failure, unspecified; Z86.711 Personal history of pulmonary embolism
CPT/HCPCS: 10060

== ENCOUNTER 2021-01-19 21:19 | Emergency (ER) | payer MEDICAID ==
[~2021-01-19] VITALS: Ht 154.9 cm; Wt 87.9 kg
--- NOTE | 2021-01-19 21:23 | NUR ---
PT UP TO RESTROOM TO CLEAN SELF, SUPPLIES AND INSTRUCTIONS PROVIDED
--- NOTE | 2021-01-19 21:50 | NUR ---
TECH AT BEDSIDE FOR EKG, PT NOW OUT OF RESTROOM
[2021-01-19] MEDS ORDERED: SODIUM CHLORIDE FLUSH 10ML SYR IVF ONE (22:00)
[2021-01-19] MEDS ORDERED: SODIUM CHLORIDE 0.9% 1,000ML IVBOLUS ONE (22:00)
[2021-01-19] MEDS ORDERED: ONDANSETRON 2MG/ML, 2ML IVPush ONE (22:00)
[2021-01-19] MEDS ORDERED: ONDANSETRON 2MG/ML, 2ML ONE (22:08)
[2021-01-19 22:10] LABS: ALANINE AMINOTRANSFERASE 22 U/L (12-78); ALBUMIN 3.3 g/dL (3.4-5.0); ANION GAP 11 mmol/L (5-15); CALCIUM 8.9 mg/dL (8.5-10.1); CHLORIDE 101 mmol/L (98-107); CREATININE 1.02 mg/dL (0.55-1.02)
[2021-01-19 22:13] LABS: BASOPHILS % (AUTO) 1 % (0-1); EOSINOPHILS % (AUTO) 3 % (1-7); LYMPHOCYTES % (AUTO) 21 % (22-44); MEAN CORPUSCULAR HEMOGLOBIN 29.9 pg (27.0-34.8); MEAN CORPUSCULAR HGB CONC 33.6 g/dL (32.4-35.8); MEAN PLATELET VOLUME 8.6 fL (7.4-10.4); MONOCYTES % (AUTO) 4 % (2-9); NEUTROPHILS % (AUTO) 72 % (42-75); PLATELET COUNT 338 x10^3/uL (130-400); RED BLOOD COUNT 4.87 x10^6/uL (3.82-5.3); RED CELL DISTRIBUTION WIDTH 16.3 % (9.6-15.2)
[2021-01-19 22:15] LABS: ALKALINE PHOSPHATASE 123 U/L (45-117); BILIRUBIN,TOTAL 1.1 mg/dL (0.2-1.0); TOTAL PROTEIN 8.9 g/dL (6.4-8.2); TROPONIN I < 0.015 ng/mL (0.000-0.045)
[2021-01-19 22:20] LABS: MD NO
--- NOTE | 2021-01-19 22:35 | NUR ---
PT RESTING WITH HAT OVER EYES RESP EVEN AND UNLABORED NADN.
--- NOTE | 2021-01-19 23:48 | NUR ---
PT RESTING ON GURNEY SLEEPING SOUNDLY, RESP EVEN AND UNLABORED NADN AT THIS TIME.
[2021-01-20 00:35] VITALS: BP 112/84
--- NOTE | 2021-01-20 00:36 | NUR ---
PIV DC, PT GIVEN DC INSTRUCTIONS VERBALIZES UNDERSTANDING, PT PROVIDED WITH CLEAN CLOTHING AND SOCKS.
== END 2021-01-20 00:53 | disposition home or self-care (01) ==
LOC: ED 22:38
DX: R10.84 Generalized abdominal pain (principal); R19.7 Diarrhea, unspecified; E11.65 Type 2 diabetes mellitus with hyperglycemia; R11.2 Nausea with vomiting, unspecified; R94.31 Abnormal electrocardiogram [ECG] [EKG]; I11.0 Hypertensive heart disease with heart failure; I50.9 Heart failure, unspecified; Z86.718 Personal history of other venous thrombosis and embolism; Z90.49 Acquired absence of other specified parts of digestive tract; Z90.89 Acquired absence of other organs
CPT/HCPCS: 36415; 80053; 83690; 84484; 85025; 93005; 96374; 99284; J2405; J7030